=== PATIENT | male | born 1945 | race Caucasian/White ===

== ENCOUNTER 2023-07-28 13:32 | Outpatient (CLI) | payer OTHER, SELFPAY ==
--- NOTE | 2023-07-28 14:30 | USCV_ITS ---
Adrian Truong Age: 78 Gender: M : 1945 Exam Date: 07/28/2023 13:50 Ordering Phys: Elizabeth Xie APRN Technologist: Exam Location: [facility] [place] Indication: pvd RIGHT LEFT Brachial 134.00 mmHg Brachial 131.00 mmHg Pressure (mmHg) Waveform Pressure (mmHg) Waveform 174.00 SKETCH LINER 168.00 152.00 DPA 166.00 1.30 Ankle/Brachial Index 1.25 FINDINGS Resting BEATA 1.3 on the right and 1.25 on the left CONCLUSIONS Supranormal resting ABIs bilaterally. No significant arterial obstruction, based on the above finding Dr Juany Menezes MD [facility] (Electronically Signed) Final Date: 29 July 2023 18:08 S
== END 2023-07-28 13:33 | disposition home or self-care (01) ==
LOC: RAD 13:38
PROVIDERS: Visit Provider Nurse Practitioner Family
DX: I73.9 Peripheral vascular disease, unspecified (principal)
CPT/HCPCS: 93922